=== PATIENT | male | born 1940 | race Caucasian/White ===

== ENCOUNTER 2021-09-05 21:05 | Inpatient (IN) | payer MEDICARE, SELFPAY ==
[~2021-09-05] VITALS: Ht 177.8 cm; Wt 99.8 kg
[2021-09-05 21:10] VITALS: BP_SYST 147
[2021-09-05] MEDS ORDERED: ASPIRIN 81 MG TAB.CHEW PO ONE (22:15)
[2021-09-05] MEDS ORDERED: IPRATROPIUM/ALBUTEROL SULFATE 3 ML AMPUL.NEB (DUONEB) INH ONE (22:30)
[2021-09-05 23:30] LABS: BASOPHILS # (AUTO) 0.1 K/uL (0.0-0.2); BASOPHILS % (AUTO) 1.1 % (0.0-2.0); EOSINOPHILS # (AUTO) 0.1 K/uL (0.0-0.4); EOSINOPHILS % (AUTO) 1.4 % (0.0-4.0); HEMATOCRIT 42.4 % (36-54); HEMOGLOBIN 14.3 g/dL (14.0-18.0); LYMPHOCYTES # (AUTO) 1.3 K/uL (1.0-5.5); LYMPHOCYTES % (AUTO) 21.4 % (20.5-51.5); MEAN CORPUSCULAR HEMOGLOBIN 31 pg (27-31); MEAN CORPUSCULAR HGB CONC 34 % (32-36); MEAN CORPUSCULAR VOLUME 92 fL (79.0-98.0); MONOCYTES # (AUTO) 0.4 K/uL (0.0-1.0); MONOCYTES % (AUTO) 6.9 % (1.7-9.3); NEUTROPHILS # (AUTO) 4.1 K/uL (1.8-7.7); NEUTROPHILS % (AUTO) 69.2 % (40.0-70.0); PLATELET COUNT (AUTO) 174 K/uL (130-430); RED CELL DISTRIBUTION WIDTH 14.7 % (9.0-15.0); WHITE BLOOD COUNT (AUTO) 5.9 K/uL (4.8-10.8)
[2021-09-05 23:36] LABS: ANION GAP 6 (5-15); CALCIUM 8.4 mg/dL (8.4-11.0); CHLORIDE 100 mmol/L (98-107); GLUCOSE 105 mg/dL (70-99); POTASSIUM 5.3 mmol/L (3.5-5.1); SODIUM SERUM 133 mmol/L (136-145); UREA NITROGEN, BLOOD 21 mg/dL (8-21)
--- NOTE | 2021-09-06 | NUR ---
Patient resting quietly. Mild resp distress noted w/ abd myos use w/ retraction noted. Patient on NRB 15l Rt notified. Vital signs within normal range.
[2021-09-06 00:06] LABS: ALANINE AMINOTRANSFERASE 39 U/L (12-78); ASPARTATE AMINOTRANSFERASE 44 U/L (10-37); TOTAL BILIRUBIN 0.3 mg/dL (0.0-1.0)
[2021-09-06 00:07] LABS: ALBUMIN 3.2 g/dL (3.4-4.8)
[2021-09-06 01:31] LABS: INR 1.3 (0.80-1.20)
[2021-09-06 01:35] LABS: PROTHROMBIN TIME 13.8 SECS (9.5-12.5)
--- NOTE | 2021-09-06 02:00 | NUR ---
Patient resting quietly. No acute distress noted. Vital signs within normal range. Rt at bedside to placed patient on high flow o2 at 8 liters NC. patient pox at 92% decreased abd myos use w/ retractions. Patient able to speak in full sentences continue to monitor.
--- NOTE | 2021-09-06 03:17 | NUR ---
RT beside to admin breathing treatment. pox noted at 87% on 8l high flow o2. continue to monitor.
[2021-09-06] MEDS ORDERED: IPRATROPIUM/ALBUTEROL SULFATE 3 ML AMPUL.NEB (DUONEB) INH ONE (04:00)
[2021-09-06 04:58] LABS: BILIRUBIN,URINE NEGATIVE (NEGATIVE); BLOOD, URINE NEGATIVE (NEGATIVE); CLARITY/URINE CLEAR (CLEAR); COLOR,URINE YELLOW (YELLOW); GLUCOSE,URINE NEGATIVE (NEGATIVE); KETONES,URINE NEGATIVE (NEGATIVE); LEUKOCYTE ESTERASE ,URINE NEGATIVE (NEGATIVE); NITRITE, URINE NEGATIVE (NEGATIVE); PROTEIN URINE NEGATIVE (NEGATIVE); UROBILINOGEN,URINE 0.2 (0.2-1.0)
--- NOTE | 2021-09-06 05:00 | NUR ---
Patient resting quietly. No acute distress noted. Vital signs within normal range. on 15 l nrb pox noted at 94%. patient awake/alert positioned for comfort. bed to low position sr up, continue to monitor.
--- NOTE | 2021-09-06 07:05 | NUR ---
REPORT RECEIVED FROM BARBARA ORO FOR CONTINUING CARE
[2021-09-06] MEDS ORDERED: ONDANSETRON HCL 4 MG/2 ML VIAL IVP PRN (08:00)
[2021-09-06] MEDS ORDERED: ACETAMINOPHEN 325 MG TABLET PO PRN (08:00)
[2021-09-06] MEDS ORDERED: NALOXONE HCL 0.4 MG/ML AMP (NARCAN) IVP PRN ×2 (08:00)
[2021-09-06] MEDS ORDERED: HYDROcodone/ACETAMIN 5-325 MG TAB (NORCO/ VICODIN) PO PRN (08:00)
[2021-09-06] MEDS ORDERED: LORazepam 2 MG/ML VIAL IVP PRN (08:00)
[2021-09-06] MEDS ORDERED: HYDROcodone/ACETAMIN 10-325 MG TAB PO PRN (08:00)
[2021-09-06 08:34] VITALS: BP_SYST 147
[2021-09-06] MEDS ORDERED: FUROSEMIDE 20 MG/2 ML VIAL IVP ONE (08:45)
--- NOTE | 2021-09-06 09:00 | NUR ---
BREAKFAST TRAY PROVIDED TO PT
--- NOTE | 2021-09-06 09:14 | NUR ---
DR. LUKE AT THE BEDSIDE
--- NOTE | 2021-09-06 10:00 | NUR ---
PT TITRATED TO NC @ 5LPM, O2 SAT 94-96%
[2021-09-06] MEDS ORDERED: FUROSEMIDE 20 MG/2 ML VIAL ONE ×2 (10:59→12:46)
[2021-09-06] MEDS: ALBUTEROL SULFATE 0.083% 2.5 MG/3 ML VIAL.NEB INH SCH ×2 (11:00→15:00)
[2021-09-06] MEDS: IPRATROPIUM BROM 0.5 MG/2.5 ML VIAL.NEB (ATROVENT) INH SCH ×2 (11:00→15:00)
[2021-09-06] MEDS ORDERED: LEVO137T2 PO (11:44)
[2021-09-06] MEDS ORDERED: TAMS-11 PO (11:44)
[2021-09-06] MEDS ORDERED: EFF37 PO (11:44)
[2021-09-06] MEDS ORDERED: FINA5TAB3 PO (11:44)
[2021-09-06] MEDS ORDERED: DABI150C PO (11:44)
[2021-09-06] MEDS ORDERED: LIP10 PO (11:44)
[2021-09-06] MEDS ORDERED: XALEYE OP (11:44)
[2021-09-06] MEDS ORDERED: METO-442 PO (11:44)
[2021-09-06] MEDS ORDERED: FAMO20TA8 PO (11:44)
--- NOTE | 2021-09-06 11:45 | NUR ---
Medication reconciliation completed with information provided by . Any prior medication reconciliation on file was reviewed and corrected.
--- NOTE | 2021-09-06 12:40 | NUR ---
PT HAS MODERATE SOFT FORMED BM, PT CLEANED AND LININS/GOWN CHANGED
--- NOTE | 2021-09-06 13:09 | NUR ---
Note undone in EDM - 09/06/21 at 1310 by SDEDSM Notified ED Admitting regarding Dr. Perez's request for admission. Per Dr. Perez, pt is NOT stable for transfer. Will notify insurance executive. PER [facility]AC[employer]: [employer] [facility] [place] [employer]
--- NOTE | 2021-09-06 13:36 | NUR ---
HERE TO DROP OFF CELL PHONE- GIVEN TO PT
--- NOTE | 2021-09-06 13:49 | NUR ---
ECHO AT THE BEDSIDE
[2021-09-06] MEDS ORDERED: NORMAL SALINE 5 ML DISP.SYRIN IVF SCH (14:00)
[2021-09-06] MEDS: NORMAL SALINE 5 ML DISP.SYRIN IVF SCH (16:52)
[2021-09-06] MEDS ORDERED: AZITHROMYCIN 500 MG/VIAL (ZITHROMAX) IV ONE (18:24)
[2021-09-06] MEDS: LATANOPROST 2.5 ML DROPS (XALATAN) OP SCH (18:34)
[2021-09-06] MEDS: AZITHROMYCIN 500 MG in NS 250 ML IV SCH (18:34)
--- NOTE | 2021-09-06 19:50 | NUR ---
[facility] Nothing is currenty pending on pt. Pt currently in holding pattern patiently awaiting room assignment and transfer to floor. At bedside for assessment and eval. Pt is doing fine with good color, temp and appearance, aaox4 and totally lucid. VSS, PE wnl. Pt is a pleasant white male who is covid pos and only mildly symptomatic, pt can maintain a conversatio and is pretty independent with ADLs. Satting well on 2L 02 approx 95-97%. Pt denies any pain, sob, dizziness, N/V or discomfort. No s/sx of distress present.
[2021-09-06] MEDS: cefTRIAXone 1 GM IVPB PREMIX 50 ML IV SCH (20:00)
--- NOTE | 2021-09-06 20:10 | NUR ---
REPORT GIVEN TO BARBARA LAINEZ FOR CONTINUING CARE
[2021-09-06] MEDS: METOPROLOL TARTRATE 50 MG TABLET PO SCH (21:00)
--- NOTE | 2021-09-06 22:30 | NUR ---
Pt given PM meds, ran IV abx, and changed linen due to him urinating the bed. Pt is clean and dry and in pos of comfort. All needs met, VSS, no s/sx of distress present.
[2021-09-06] MEDS ORDERED: METOPROLOL TARTRATE 25 MG TABLET ONE (23:09)
[2021-09-06] MEDS ORDERED: cefTRIAXone 1 GM IVPB PREMIX 50 ML IV ONE (23:09)
--- NOTE | 2021-09-07 04:10 | NUR ---
Checked on pt. Pt is sleeping soundly with audible snorring. VSS, pt as good color and appearance. call light within reach and side rails up. Urinal emptied and made ready to use again. will check on him next when giving him his 0700 meds.
--- NOTE | 2021-09-07 04:20 | NUR ---
Blood collected for morning labs and repeat trop by mechanical shop laborer. Pt also peed the bed again and needed linen change. I changed linen and gave him fresh linen, gown, blanket, chucks. Pt is clean and dry and in pos of comfort, VSS, AAOx4 with good color and appearance. pt is resting comfortably.
[2021-09-07 04:30] LABS: BASOPHILS # (AUTO) 0.1 K/uL (0.0-0.2); BASOPHILS % (AUTO) 1.3 % (0.0-2.0); EOSINOPHILS # (AUTO) 0.1 K/uL (0.0-0.4); EOSINOPHILS % (AUTO) 1.9 % (0.0-4.0); HEMATOCRIT 44.9 % (36-54); HEMOGLOBIN 15.3 g/dL (14.0-18.0); LYMPHOCYTES # (AUTO) 2.1 K/uL (1.0-5.5); LYMPHOCYTES % (AUTO) 28.8 % (20.5-51.5); MEAN CORPUSCULAR HEMOGLOBIN 31 pg (27-31); MEAN CORPUSCULAR HGB CONC 34 % (32-36); MEAN CORPUSCULAR VOLUME 91 fL (79.0-98.0); MONOCYTES # (AUTO) 0.8 K/uL (0.0-1.0); MONOCYTES % (AUTO) 10.2 % (1.7-9.3); NEUTROPHILS # (AUTO) 4.3 K/uL (1.8-7.7); NEUTROPHILS % (AUTO) 57.8 % (40.0-70.0); PLATELET COUNT (AUTO) 180 K/uL (130-430); RED BLOOD CELL COUNT(AUTO) 4.93 MIL/uL (4.2-6.2); RED CELL DISTRIBUTION WIDTH 14.1 % (9.0-15.0); WHITE BLOOD COUNT (AUTO) 7.4 K/uL (4.8-10.8)
[2021-09-07 04:44] LABS: ANION GAP 5 (5-15); CALCIUM 8.8 mg/dL (8.4-11.0); CHLORIDE 97 mmol/L (98-107); CREATININE 0.79 mg/dL (0.55-1.30); GLUCOSE 96 mg/dL (70-99); POTASSIUM 4.6 mmol/L (3.5-5.1); SODIUM SERUM 134 mmol/L (136-145); UREA NITROGEN, BLOOD 16 mg/dL (8-21)
[2021-09-07 04:59] LABS: ALANINE AMINOTRANSFERASE 29 U/L (12-78); ALBUMIN 3.4 g/dL (3.4-4.8); ASPARTATE AMINOTRANSFERASE 26 U/L (10-37); PHOSPHORUS 3.3 mg/dL (2.7-4.5); THYROID STIMULATING HORMONE 1.11 uIu/mL (0.36-3.74); TOTAL BILIRUBIN 0.9 mg/dL (0.0-1.0)
--- NOTE | 2021-09-07 05:16 | NUR ---
Lab just called with critical Trop that is trending upward from yesterday morning. today trop is at 341, up from 304 drawn yesterday at around 0800. EDMD informed of critical value.
[2021-09-07] MEDS: ALBUTEROL SULFATE 0.083% 2.5 MG/3 ML VIAL.NEB INH SCH ×3 (07:00→15:00)
[2021-09-07] MEDS: IPRATROPIUM BROM 0.5 MG/2.5 ML VIAL.NEB (ATROVENT) INH SCH ×3 (07:00→15:00)
--- NOTE | 2021-09-07 09:32 | NUR ---
POC reviewed with pt., he is alert and orineted, assisted with urinal, breakfast tray given, called pharmacy earlier waitting for am medication
[2021-09-07] MEDS ORDERED: CARVEDILOL 6.25 MG TABLET (COREG) PO ONE (10:30)
--- NOTE | 2021-09-07 11:00 | NUR ---
Pt. placed on hospital bed for comfort
[2021-09-07] MEDS: LEVOTHYROXINE SODIUM 0.137 MG TABLET PO SCH (11:18)
[2021-09-07] MEDS: FUROSEMIDE 40 MG/4 ML VIAL IVP SCH (11:19)
[2021-09-07] MEDS: ASPIRIN 81 MG TAB.CHEW PO SCH (11:19)
[2021-09-07] MEDS: TAMSULOSIN HCL 0.4 MG CAP PO SCH (11:20)
[2021-09-07] MEDS: ATORVASTATIN 10 MG TABLET PO SCH (11:20)
[2021-09-07] MEDS: METOPROLOL TARTRATE 50 MG TABLET PO SCH ×2 (11:22→20:34)
[2021-09-07] MEDS: FAMOTIDINE 20 MG TABLET PO SCH (11:24)
[2021-09-07] MEDS: FINASTERIDE 5 MG TABLET (PROSCAR) PO SCH (11:24)
--- NOTE | 2021-09-07 16:34 | NUR ---
assisted pt. OOB to bedside commode, pt. becomes winded with minimal activity
--- NOTE | 2021-09-07 17:10 | NUR ---
Patient will be admitted to care of Admitted to tele unit. Will go to room 120B. Belongings list completed. Complete and up to date summary report printed. SBAR report given at bedside with Taliana opportunity for questions.
[2021-09-07 17:27] VITALS: BP_SYST 140
--- NOTE | 2021-09-07 17:30 | NUR ---
PATIENT ADMITTED TO UNIT, TRANSFERED FROM ER IN BED, ON OXIMIZER 7L, IV L HAND 20G, A/OX4, NO S/S OF DISTRESS, REPORT FROM YAHIR, WILL ADMIT TO UNIT.
[2021-09-07 17:46] VITALS: BP_SYST 140
[2021-09-07 20:00] VITALS: BP_SYST 148
[2021-09-07] MEDS: AZITHROMYCIN 500 MG in NS 250 ML IV SCH (20:24)
[2021-09-07] MEDS: LATANOPROST 2.5 ML DROPS (XALATAN) OP SCH (20:25)
[2021-09-07] MEDS: cefTRIAXone 1 GM IVPB PREMIX 50 ML IV SCH (20:26)
[2021-09-07] MEDS: CARVEDILOL 6.25 MG TABLET (COREG) PO SCH (20:33)
[2021-09-07] MEDS: DABIGATRAN ETEXILATE MESYLATE 75 MG CAPSULE PO SCH (20:36)
[2021-09-07] MEDS: NORMAL SALINE 5 ML DISP.SYRIN IVF SCH (21:19)
[2021-09-08] VITALS (7 sets, daily range): BP systolic 102–156
--- NOTE | 2021-09-08 05:38 | NUR ---
Nutrition Update Corey Scale 16 noted. Pt admitted for SOB Diet: Cardiac BMI: 31.6 kg/m2 RD to follow per nutrition care standards.
[2021-09-08] MEDS: DABIGATRAN ETEXILATE MESYLATE 75 MG CAPSULE PO SCH ×2 (09:00→21:50)
[2021-09-08] MEDS: TAMSULOSIN HCL 0.4 MG CAP PO SCH (09:47)
[2021-09-08] MEDS: LEVOTHYROXINE SODIUM 0.137 MG TABLET PO SCH (09:47)
[2021-09-08] MEDS: FINASTERIDE 5 MG TABLET (PROSCAR) PO SCH (09:48)
[2021-09-08] MEDS: ASPIRIN 81 MG TAB.CHEW PO SCH (09:48)
[2021-09-08] MEDS: METOPROLOL TARTRATE 50 MG TABLET PO SCH ×2 (09:48→21:53)
[2021-09-08] MEDS: FAMOTIDINE 20 MG TABLET PO SCH (09:49)
[2021-09-08] MEDS: ATORVASTATIN 10 MG TABLET PO SCH (09:49)
[2021-09-08] MEDS: FUROSEMIDE 40 MG/4 ML VIAL IVP SCH (09:50)
[2021-09-08] MEDS: CARVEDILOL 6.25 MG TABLET (COREG) PO SCH ×2 (09:51→21:52)
[2021-09-08 10:12] LABS: BASOPHILS # (AUTO) 0.1 K/uL (0.0-0.2); BASOPHILS % (AUTO) 0.9 % (0.0-2.0); EOSINOPHILS # (AUTO) 0.2 K/uL (0.0-0.4); EOSINOPHILS % (AUTO) 3.3 % (0.0-4.0); HEMATOCRIT 48.5 % (36-54); HEMOGLOBIN 16.2 g/dL (14.0-18.0); LYMPHOCYTES # (AUTO) 2.1 K/uL (1.0-5.5); LYMPHOCYTES % (AUTO) 33.7 % (20.5-51.5); MEAN CORPUSCULAR HEMOGLOBIN 31 pg (27-31); MEAN CORPUSCULAR HGB CONC 33 % (32-36); MONOCYTES # (AUTO) 0.6 K/uL (0.0-1.0); NEUTROPHILS # (AUTO) 3.2 K/uL (1.8-7.7); NEUTROPHILS % (AUTO) 52.1 % (40.0-70.0); PLATELET COUNT (AUTO) 183 K/uL (130-430); RED BLOOD CELL COUNT(AUTO) 5.23 MIL/uL (4.2-6.2); RED CELL DISTRIBUTION WIDTH 14.7 % (9.0-15.0); WHITE BLOOD COUNT (AUTO) 6.2 K/uL (4.8-10.8)
[2021-09-08 10:24] LABS: ALANINE AMINOTRANSFERASE 21 U/L (12-78); ALBUMIN 3.3 g/dL (3.4-4.8); ANION GAP 7 (5-15); ASPARTATE AMINOTRANSFERASE 27 U/L (10-37); C-REACTIVE PROTEIN QUANT 2.3 mg/dL (0-0.5); CHLORIDE 97 mmol/L (98-107); GLUCOSE 86 mg/dL (70-99); POTASSIUM 3.8 mmol/L (3.5-5.1); SODIUM SERUM 134 mmol/L (136-145); TOTAL BILIRUBIN 0.8 mg/dL (0.0-1.0); UREA NITROGEN, BLOOD 16 mg/dL (8-21)
[2021-09-08 10:45] LABS: MEAN CORPUSCULAR VOLUME 93 fL (79.0-98.0)
[2021-09-08 11:34] LABS: ERYTHROCYTE SEDIMENTATION RATE 11 MM/HR (0-15)
--- NOTE | 2021-09-08 12:32 | NUR ---
Dietitian Recommendations *Continue Cardiac diet. Add Ensure Enlive BID. FRANCHESCA, RD
--- NOTE | 2021-09-08 16:14 | NUR ---
0800: ASLEEP AROUSABLE WITH VERBAL STIMULI, ORIENTED X 3 TO NAME, PERSON, AND PLACE. RESPIRATION EVEN AND UNLABORED NO S/S OF ANY ACUTE DISTRESS NOTED. ABLE TO VERBALIZE NEEDS NO C/O ANY PAIN OR DISCOMFORT NOTED. ABDOMEN SOFT AND NON-DISTENDED, POSITIVE BOWEL SOUND X 4 NO N/V OR DIARRHEA NOTED. SKIN WARM AND DRY INTACT NO REDNESS OR EDEMA NOTED. 1400: TOLERATED PO WELL WITH GOOD APPETITE NO ABDOMINAL DISCOMFORT NOTED. WILL CONTINUE TO REASSESS PATIENT PRN.
[2021-09-08] MEDS: AZITHROMYCIN 500 MG in NS 250 ML IV SCH (18:00)
[2021-09-08] MEDS: LATANOPROST 2.5 ML DROPS (XALATAN) OP SCH (18:00)
--- NOTE | 2021-09-08 19:46 | NUR ---
PATIENT REMAINED NO CHANGE IN LOC, SHORTNESS OF BREATH OR ANY DISCOMFORT NOTED. NO ADVERSE REACTION FROM CURRENT MEDICAL TREATMENT NOTED. ENDORSED PATIENT TO PM SHIFT NURSE
--- NOTE | 2021-09-08 20:54 | NUR ---
ITCHY arms / Dr. Whitney Inman Informed patient is c/o itchiness to arms, which are dry-flaky skin. Received orders for topical application of Calamine Lotion
[2021-09-08] MEDS ORDERED: CALAMINE 120 ML TOPICAL LOTION TP PRN (21:00)
[2021-09-08] MEDS: cefTRIAXone 1 GM IVPB PREMIX 50 ML IV SCH (21:49)
[2021-09-08] MEDS: NORMAL SALINE 5 ML DISP.SYRIN IVF SCH (22:03)
--- NOTE | 2021-09-08 23:50 | NUR ---
constipation / Dr. Inman Informed patient reports no BM in three days and requesting med. Received med orders for Colace; TORB
[2021-09-09 01:10] VITALS: BP_SYST 131
[2021-09-09] MEDS: LEVOTHYROXINE SODIUM 0.137 MG TABLET PO SCH (06:29)
[2021-09-09] MEDS: NORMAL SALINE 5 ML DISP.SYRIN IVF SCH ×3 (06:30→22:00)
[2021-09-09 06:59] LABS: BASOPHILS # (AUTO) 0.1 K/uL (0.0-0.2); BASOPHILS % (AUTO) 1.6 % (0.0-2.0); EOSINOPHILS # (AUTO) 0.2 K/uL (0.0-0.4); EOSINOPHILS % (AUTO) 2.8 % (0.0-4.0); HEMATOCRIT 47.7 % (36-54); LYMPHOCYTES % (AUTO) 28.7 % (20.5-51.5); MEAN CORPUSCULAR HEMOGLOBIN 31 pg (27-31); MEAN CORPUSCULAR HGB CONC 34 % (32-36); MEAN CORPUSCULAR VOLUME 92 fL (79.0-98.0); MONOCYTES # (AUTO) 0.7 K/uL (0.0-1.0); MONOCYTES % (AUTO) 9.6 % (1.7-9.3); NEUTROPHILS % (AUTO) 57.3 % (40.0-70.0); PLATELET COUNT (AUTO) 181 K/uL (130-430); RED BLOOD CELL COUNT(AUTO) 5.19 MIL/uL (4.2-6.2); RED CELL DISTRIBUTION WIDTH 14.6 % (9.0-15.0); WHITE BLOOD COUNT (AUTO) 7.1 K/uL (4.8-10.8)
[2021-09-09 07:13] LABS: ANION GAP 6 (5-15); CALCIUM 8.7 mg/dL (8.4-11.0); CHLORIDE 98 mmol/L (98-107); CREATININE 0.83 mg/dL (0.55-1.30); GLUCOSE 99 mg/dL (70-99); POTASSIUM 4.3 mmol/L (3.5-5.1); SODIUM SERUM 136 mmol/L (136-145); UREA NITROGEN, BLOOD 19 mg/dL (8-21)
[2021-09-09 08:00] VITALS: BP_SYST 134
[2021-09-09] MEDS: ASPIRIN 81 MG TAB.CHEW PO SCH (08:46)
[2021-09-09] MEDS: FINASTERIDE 5 MG TABLET (PROSCAR) PO SCH (08:46)
[2021-09-09] MEDS: DABIGATRAN ETEXILATE MESYLATE 75 MG CAPSULE PO SCH ×2 (08:46→20:47)
[2021-09-09] MEDS: DOCUSATE SODIUM 100 MG CAPSULE PO SCH ×2 (08:46→20:45)
[2021-09-09] MEDS: FAMOTIDINE 20 MG TABLET PO SCH (08:47)
[2021-09-09] MEDS: METOPROLOL TARTRATE 50 MG TABLET PO SCH ×2 (08:47→20:47)
[2021-09-09] MEDS: TAMSULOSIN HCL 0.4 MG CAP PO SCH (08:47)
[2021-09-09] MEDS: CARVEDILOL 6.25 MG TABLET (COREG) PO SCH ×2 (08:47→20:54)
[2021-09-09] MEDS: ATORVASTATIN 10 MG TABLET PO SCH (08:48)
[2021-09-09] MEDS: FUROSEMIDE 40 MG/4 ML VIAL IVP SCH (08:48)
[2021-09-09 09:59] LABS: ERYTHROCYTE SEDIMENTATION RATE 15 MM/HR (0-15)
[2021-09-09 10:23] LABS: C-REACTIVE PROTEIN QUANT 2.3 mg/dL (0-0.5)
[2021-09-09 11:31] VITALS: BP_SYST 100
--- NOTE | 2021-09-09 14:06 | NUR ---
PAGED PAGED RAMONA ENCINAS AT [phone] [facility] EXCHANGE.
[2021-09-09 15:27] VITALS: BP_SYST 140
[2021-09-09] MEDS: LATANOPROST 2.5 ML DROPS (XALATAN) OP SCH (17:36)
[2021-09-09] MEDS: AZITHROMYCIN 500 MG in NS 250 ML IV SCH (17:36)
[2021-09-09 20:22] VITALS: BP_SYST 123
[2021-09-09] MEDS: cefTRIAXone 1 GM IVPB PREMIX 50 ML IV SCH (20:48)
[2021-09-10 00:46] VITALS: BP_SYST 151
[2021-09-10] MEDS: NORMAL SALINE 5 ML DISP.SYRIN IVF SCH ×2 (05:07→14:00)
[2021-09-10 06:59] LABS: BASOPHILS # (AUTO) 0.1 K/uL (0.0-0.2); BASOPHILS % (AUTO) 1.3 % (0.0-2.0); EOSINOPHILS # (AUTO) 0.2 K/uL (0.0-0.4); EOSINOPHILS % (AUTO) 3.4 % (0.0-4.0); HEMOGLOBIN 15.8 g/dL (14.0-18.0); LYMPHOCYTES # (AUTO) 1.8 K/uL (1.0-5.5); LYMPHOCYTES % (AUTO) 32.8 % (20.5-51.5); MEAN CORPUSCULAR HEMOGLOBIN 31 pg (27-31); MEAN CORPUSCULAR HGB CONC 34 % (32-36); MEAN CORPUSCULAR VOLUME 92 fL (79.0-98.0); MONOCYTES # (AUTO) 0.5 K/uL (0.0-1.0); MONOCYTES % (AUTO) 8.4 % (1.7-9.3); NEUTROPHILS % (AUTO) 54.1 % (40.0-70.0); PLATELET COUNT (AUTO) 182 K/uL (130-430); RED CELL DISTRIBUTION WIDTH 14.2 % (9.0-15.0); WHITE BLOOD COUNT (AUTO) 5.6 K/uL (4.8-10.8)
--- NOTE | 2021-09-10 07:09 | NUR ---
HANDOFF WITH BARBARA CUBA. MARCO NICHOLSON RN
[2021-09-10 07:59] LABS: ALANINE AMINOTRANSFERASE 23 U/L (12-78); ALBUMIN 3.2 g/dL (3.4-4.8); ANION GAP 9 (5-15); ASPARTATE AMINOTRANSFERASE 26 U/L (10-37); CALCIUM 8.7 mg/dL (8.4-11.0); CHLORIDE 97 mmol/L (98-107); CREATININE 0.81 mg/dL (0.55-1.30); GLUCOSE 117 mg/dL (70-99); POTASSIUM 3.4 mmol/L (3.5-5.1); SODIUM SERUM 133 mmol/L (136-145); TOTAL BILIRUBIN 0.5 mg/dL (0.0-1.0); UREA NITROGEN, BLOOD 18 mg/dL (8-21)
[2021-09-10 08:00] VITALS: BP_SYST 109
--- NOTE | 2021-09-10 08:00 | NUR ---
OPENING NOTE PT resting in bed, AxO x4. Oxygen saturation is 95% on room air, encouraged PT to replace his NC and his oxygen saturation returned to 99% on 1L. Breaths are even and nonlabored. IV on R hand is clean, dry, intact, and running prescribed fluids. No complaints of pain or discomfort. All needs met, safety checks made and call light within reach.
[2021-09-10] MEDS: FINASTERIDE 5 MG TABLET (PROSCAR) PO SCH (09:01)
[2021-09-10] MEDS: DOCUSATE SODIUM 100 MG CAPSULE PO SCH (09:02)
[2021-09-10] MEDS: TAMSULOSIN HCL 0.4 MG CAP PO SCH (09:02)
[2021-09-10] MEDS: ASPIRIN 81 MG TAB.CHEW PO SCH (09:03)
[2021-09-10] MEDS: FAMOTIDINE 20 MG TABLET PO SCH (09:03)
[2021-09-10] MEDS: CARVEDILOL 6.25 MG TABLET (COREG) PO SCH (09:04)
[2021-09-10] MEDS: ATORVASTATIN 10 MG TABLET PO SCH (09:04)
[2021-09-10] MEDS: METOPROLOL TARTRATE 50 MG TABLET PO SCH (09:05)
[2021-09-10] MEDS: DABIGATRAN ETEXILATE MESYLATE 75 MG CAPSULE PO SCH (09:07)
[2021-09-10] MEDS: FUROSEMIDE 40 MG/4 ML VIAL IVP SCH (09:08)
[2021-09-10 09:27] LABS: ERYTHROCYTE SEDIMENTATION RATE 10 MM/HR (0-15)
[2021-09-10] MEDS: ALBUTEROL SULFATE 0.083% 2.5 MG/3 ML VIAL.NEB INH SCH ×2 (11:00→15:13)
[2021-09-10] MEDS: IPRATROPIUM BROM 0.5 MG/2.5 ML VIAL.NEB (ATROVENT) INH SCH ×2 (11:00→15:13)
[2021-09-10] MEDS ORDERED: METO-442 PO (11:16)
[2021-09-10] MEDS ORDERED: DOCU-144 PO (11:16)
[2021-09-10] MEDS ORDERED: DOXY100T2 PO (11:16)
[2021-09-10] MEDS ORDERED: COR6.25 PO (11:16)
[2021-09-10 12:00] VITALS: BP_SYST 93
[2021-09-10] MEDS ORDERED: POTASSIUM CHLORIDE 20 MEQ TAB.PRT.SR PO ONE (12:45)
[2021-09-10 12:58] LABS: C-REACTIVE PROTEIN QUANT 2.4 mg/dL (0-0.5)
--- NOTE | 2021-09-10 14:05 | NUR ---
PER ELSA Montgomery , SHE INFORMED PT THAT HE IS BEING DISCHARGED. PT STATED THAT HE WILL NEED AMBULANCE TRANSPORT BECAUSE HIS CANNOT HELP HER GET IN AND OUT OF THE CAR. CASE [facility] WAS CALLED BY ELSA Hu .
[2021-09-10 15:52] VITALS: BP_SYST 126
[2021-09-10 16:03] VITALS: BP_SYST 126
[2021-09-10] MEDS: LATANOPROST 2.5 ML DROPS (XALATAN) OP SCH (17:54)
--- NOTE | 2021-09-10 18:50 | NUR ---
D/C Patient Patient given medication reconciliation form and D/C instructions. Exit Care provided. Patient verbalized understanding. MD discussed with patient the results and treatment provided. Discharged via gurney to home by ambulance. Patient in stable condition, ID band removed. IV catheter removed, intact and dressing applied, no active bleeding. Patient educated on pain management. All belongings sent with patient.
--- NOTE | 2021-09-11 07:50 | NUR ---
PHYSICAL THERAPY CO-SIGN The Physical Therapy Progress Notes documented by Bead Cutter have been reviewed. Reviewed/Co-Signed by: Brock Yan Documentation Done by: ELENA RUTH PTA Addendum: 09/11/21 at 0750 by Brock Yan PT Amended: Links added.
== END 2021-09-10 18:50 | disposition home or self-care (01) | DRG 871 ==
LOC: EDBD 21:05 → SED 21:05 → STU 09-06 02:32
PROVIDERS: ADMIT Preventive Medicine Preventive Medicine/Occupational Environmental Medicine; ATTEND Preventive Medicine Preventive Medicine/Occupational Environmental Medicine
DX: A41.9 Sepsis, unspecified organism (principal); J18.9 Pneumonia, unspecified organism; J96.01 Acute respiratory failure with hypoxia; E44.0 Moderate protein-calorie malnutrition; G83.4 Cauda equina syndrome; E87.1 Hypo-osmolality and hyponatremia; E78.5 Hyperlipidemia, unspecified; E03.9 Hypothyroidism, unspecified; E87.5 Hyperkalemia; R73.9 Hyperglycemia, unspecified; E88.09 Other disorders of plasma-protein metabolism, not elsewhere classified; F03.90 Unspecified dementia, unspecified severity, without behavioral disturbance, psychotic disturbance, mood disturbance, and anxiety; E87.6 Hypokalemia; Z20.822 Contact with and (suspected) exposure to COVID-19; I48.0 Paroxysmal atrial fibrillation; I25.5 Ischemic cardiomyopathy; G62.9 Polyneuropathy, unspecified; N40.0 Benign prostatic hyperplasia without lower urinary tract symptoms; R32 Unspecified urinary incontinence; I11.0 Hypertensive heart disease with heart failure; I50.9 Heart failure, unspecified; E16.2 Hypoglycemia, unspecified; Z68.31 Body mass index [BMI] 31.0-31.9, adult; Z86.73 Personal history of transient ischemic attack (TIA), and cerebral infarction without residual deficits
CPT/HCPCS: 36415; 71045; 80048; 80053; 81003; 83735; 83880; 84100; 84443; 84484; 85025; 85379; 85610-TC; 85651-TC; 85730-TC; 86140; 93005; 93306; 94640; 94760; 96374; 97163-GP; 99291; G0378; J0456; J0696; J1940; J7050; J7613; U0003